=== PATIENT | female | born 1975 | race African-American/Black ===

== ENCOUNTER → 2018-07-10 | Outpatient (CLI) | payer OTHER | LOC: OD 13:10 | PROVIDERS: ATTEND Otolaryngology | DX: J30.9 Allergic rhinitis, unspecified (principal) | CPT/HCPCS: 36415; 82785; 86003 ==

== ENCOUNTER → 2018-08-09 | Outpatient (CLI) | payer OTHER ==
--- NOTE | 2018-08-09 09:20 | RADIOLOGY REPORT (SQ) ---
EXAM DESCRIPTION: CT SINUSES FOR ENT COMPLETED DATE/TIME: 08/09/2018 8:32 am REASON FOR STUDY: ACUTE RECURRENT SINUSITIS E07.89 OTHER SPECIFIED DISORDERS OF THYROID J01.91 ACU TE RECURRENT SINUSITIS, UNSPECIFIED COMPARISON: None. TECHNIQUE: Noncontrast scanning through the paranasal sinuses using bone algorithm. Reconstructed MPR images reviewed. All images stored on PACS. Images acquired for image guided surgery. All CT scanners at this facility use dose modulation, iterative reconstruction, and/or weight based d osing when appropriate to reduce radiation dose to as low as reasonably achievable (ALARA). [facility]: Dose Right [facility]: CareDose [facility]: Dose Right [facility]: Teradose 4D [facility]: [employer] RADIATION DOSE: 47 mGy. FINDINGS: NASAL PASSAGES: Clear. No polyps or masses. OSTEOMEATAL UNITS AND NASOFRONTAL DUCTS: Patent. No agger nasi cells. Small bilateral Aixa cells MAXILLARY SINUSES: Well-pneumatized, with mucous membrane thickening along the floor of the right and left maxillary sinuses. Maxillary sinus outlets are patent. ETHMOID SINUSES: Well-pneumatized and clear. SPHENOID SINUSES: Well pneumatized, with mucous membrane thickening along the pterygoid recess right sphenoid sinus No sphenoethmoid air cells. Bilateral pneumatized pterygoid recesses. No pneumatized dorsal sella. FRONTAL SINUSES: Well-pneumatized and clear. MASTOID AIR CELLS: Clear. ORBITS: Normal and symmetrical. NASAL SEPTUM: Midline. No nasal septal spurs. TEMPOROMANDIBULAR JOINTS: Normal. TURBINATES: No pneumatized turbinates. MUCOPERIOSTEAL THICKENING: No. MUCOCELE: No. OTHER: Limited view of the brain included in the field view demonstrates a 2 x 1.4 cm CSF density cys t along the right frontal horn lateral ventricle/interhemispheric fissure. This most likely represen ts a benign arachnoid cyst. However, MRI brain without and with contrast is recommended for followu p, to exclude cystic tumor IMPRESSION: Mucous membrane thickening, pterygoid recess right sphenoid sinus, bilateral floor maxil tj sinuses. 2 x 1.4 cm CSF density cyst along the right frontal horn lateral ventricle/ interhemispheric fissure. This most likely represents a benign arachnoid cyst. MRI brain without and with contrast recommend ed for follow-up. TECHNICAL DOCUMENTATION: JOB ID: [id number] Quality ID # [id number]: Final reports with documentation of one or more dose reduction techniques (e.g., Au tomated exposure control, adjustment of the mA and/or kV according to patient size, use of iterative reconstruction technique) 2010 [employer]- All Rights Reserved Reading location - IP/workstation name: [email or web address]
--- NOTE | 2018-08-09 11:40 | RADIOLOGY REPORT (SQ) ---
EXAM DESCRIPTION: U/S THYROID/SFT TISS HD NECK COMPLETED DATE/TIME: 08/09/2018 9:36 am REASON FOR STUDY: E07.89 OTHER SPECIFIED DISORDERS OF THYROID E07.89 OTHER SPECIFIED DISORDERS OF T HYROID J01.91 ACUTE RECURRENT SINUSITIS, UNSPECIFIED COMPARISON: None. TECHNIQUE: Dynamic and static grove-scale images acquired of the thyroid gland. Selected additional c olor/power Doppler images recorded. All images stored to PACS. LIMITATIONS: None. FINDINGS: RIGHT LOBE: Right lobe thyroid is 6 x 2.7 x 2.5 cm in size. Diffuse mildly heterogeneous parenchyma with 4.5 mm colloid cyst, benign LEFT LOBE: Left lobe thyroid is 5.8 x 2.7 x 2.2 cm in size. Diffuse mildly heterogeneous parenchyma with well-circumscribed 6 mm hypoechoic nodule left lower pole ISTHMUS: Normal size. 3 mm colloid cyst in the left thyroid isthmus OTHER: No other significant finding. IMPRESSION: Thyroid gland upper limits of normal with benign appearing subcentimeter findings. 1 ye barbra follow-up recommended TECHNICAL DOCUMENTATION: JOB ID: [id number] [employer]- All Rights Reserved Reading location - IP/workstation name: [id number]
== END ==
LOC: RAD 08:29
PROVIDERS: ATTEND Otolaryngology
DX: J01.91 Acute recurrent sinusitis, unspecified (principal); G93.0 Cerebral cysts; E04.1 Nontoxic single thyroid nodule
CPT/HCPCS: 70486; 76536